=== PATIENT | female | born 1955 | race Caucasian/White ===

== ENCOUNTER 2020-11-21 12:11 | Outpatient (CLI) | payer OTHER, SELFPAY ==
[2020-11-21 12:21] LABS: Hematocrit 44.1 % (37.0-47.0); Hemoglobin 14.3 g/dL (12.0-15.0); Mean Corpuscular HGB Conc 32.4 g/dl (32-36); Mean Corpuscular Hemoglobin 31.1 pg (26-34); Mean Corpuscular Volume 95.9 fl (80-100); Mean Platelet Volume 9.9 fl (7.4-10.4); Platelet Count Result 226 k/mm3 (150-375); Red Cell Distribution Width 12.3 % (11.5-14.5)
== END 2020-11-21 12:12 | disposition home or self-care (01) ==
PROVIDERS: PCP Internal Medicine; Visit Provider Obstetrics & Gynecology
DX: T14.8XXA Other injury of unspecified body region, initial encounter (principal)
CPT/HCPCS: 36415; 85027

== ENCOUNTER 2021-08-09 00:39 | Day surgery (SDC) | payer OTHER, SELFPAY ==
[2021-07-19 12:36] VITALS: BMI 22.8
--- NOTE | 2021-08-08 15:01 | PM.HPGS ---
History of Present Illness History of Present Illness Consent: Risks, benefits, and alternatives have been discussed and questions answered. Patient agrees to proceed with procedure. Chief complaint: neoplasm screening Narrative: Cassia Ibarra is a 66 year old female referred for colon cancer screening. She has a family history of polyps. Her last colonoscopy was 12 years ago. Review of Systems Review of Systems: All systems reviewed & are unremarkable except as noted in HPI and below PMFSH Past Medical History Medical History Abnormal mammogram of both breasts Osteopenia Surgical History Surgical History History of breast biopsy History of cholecystectomy History of dilation and curettage History of laparoscopy S/P appendectomy Family History Family History Mother Hypertension Father Cerebrovascular accident Grandparent Cerebrovascular accident Sibling Family history of lung cancer Family history of malignant neoplasm of breast in first degree relative Other Family history of malignant neoplasm of breast Social History Social History Smoking status: Never smoker Second hand tobacco smoke exposure: No Alcohol intake: never Living arrangements: with family Meds Home Medications and Allergies Home Medications Medication Instructions Recorded Confirmed Type No Home Medications 11/11/19 08/09/21 History Allergies Allergy/AdvReac Type Severity Reaction Status Date / Time NA Allergy unknown Uncoded 08/09/21 06:22 Exam Resp: Auscultation: clear to auscultation bilaterally Cardio: Rate: regular rate Rhythm: regular rhythm GI: GI Palp: Yes Soft to palpation and No Tenderness to palpation present (GI) Assessment and Plan Assessment and plan (1) Colon cancer screening: Code(s): Z12.11 - Encounter for screening for malignant neoplasm of colon Status: Acute Assessment and Plan: Colonoscopy with possible biopsy or polypectomy or cautery or injection of substances.
[2021-08-09 06:15] VITALS: BP 129/84; PULSE 76; RESP 18; TEMP 36; O2SAT 100; BMI 22.7
[2021-08-09] MEDS: LACTATED RINGERS 1,000 ML 150 ML IV CONT (06:38)
--- NOTE | 2021-08-09 07:16 | WPDANESEPPF ---
Anes - Initial Pre Proc Eval Procedure: Operation Date: 08/09/21 07:30 Proposed Procedures p Screening Colonoscopy - Law Rodriguez MD Date/Time: 08/09/21 07:16 Surgeon: Law Rodriguez MD Pre Op Diagnosis: neoplasm screening Patient Data Age: 66 Gender: F Height: 1.78 m Weight: 71.9 kg Last Vital Signs Temp 96.8 F L 08/09/21 06:15 Pulse 76 08/09/21 06:15 Resp 18 08/09/21 06:15 BP 129/84 08/09/21 06:15 Pulse Ox 100 08/09/21 06:15 O2 Del Method Room Air 08/09/21 06:15 Allergies Allergy/AdvReac Type Severity Reaction Status Date / Time NA Allergy unknown Uncoded 08/09/21 06:22 Home Medications Medication Instructions Recorded Confirmed Type No Home Medications 11/11/19 08/09/21 History Patient hx anesthesia problems: none Family hx anesthesia problems: none Results Review: All pre-operative results and documents have been reviewed as part of the pre-operative evaluation. [facility] Past Medical History Medical History Abnormal mammogram of both breasts Osteopenia Surgical History Surgical History History of breast biopsy History of cholecystectomy History of dilation and curettage History of laparoscopy S/P appendectomy Family History Family History Mother Hypertension Father Cerebrovascular accident Grandparent Cerebrovascular accident Sibling Family history of lung cancer Family history of malignant neoplasm of breast in first degree relative Other Family history of malignant neoplasm of breast Social History Social History Smoking status: Never smoker Second hand tobacco smoke exposure: No Alcohol intake: never Living arrangements: with family Anes - Eval Final PreProcedure Day of Procedure 08/09/21 07:16 Patient weight: normal Heart: regular rate and rhythm Lungs: clear to auscultation Airway: Mallampati scale class II Neurological: alert and oriented Last oral intake: >/= 8 hours ASA classification: I Emergent: no Anesthetic plan: proceed Anesthesia type and monitoring: general GIVS and standard monitoring Results Review: All pre-operative results and documents have been reviewed as part of the pre-operative evaluation. Informed Consent: The patient's anesthetic plan and its attendant risks and benefits were discussed with the patient/family/POA. Questions were solicited and answers provided to the satisfaction of the patient/family/POA.
[2021-08-09 07:55] VITALS: BP 93/57; PULSE 68; RESP 23; O2SAT 99
[2021-08-09 08:05] VITALS: BP 99/54; PULSE 67; RESP 18; O2SAT 100
[2021-08-09 08:15] VITALS: BP 104/72; PULSE 58; RESP 17; O2SAT 99
== END 2021-08-09 08:30 | disposition home or self-care (01) ==
PROVIDERS: PCP Internal Medicine; Visit Provider Internal Medicine Gastroenterology
PROC: 0DJD8ZZ Inspection of Lower Intestinal Tract, Via Natural or Artificial Opening Endoscopic (ICD-10-PCS; CPT 45378; principal; 2021-08-09 07:30)
DX: Z12.11 Encounter for screening for malignant neoplasm of colon (principal)
CPT/HCPCS: 45378; J2704; J7120